=== PATIENT | male | born 2000 | race Caucasian/White ===

== ENCOUNTER 2018-01-17 12:59 | Emergency (ER) | payer OTHER ==
[~2018-01-17] VITALS: Ht 182.9 cm; Wt 74.8 kg
[2018-01-17 14:29] LABS: ABSOLUTE BASOPHIL COUNT 0.1 /CUMM (0.0-0.2); ABSOLUTE EOSINOPHIL COUNT 0.4 /CUMM (0.0-0.7); ABSOLUTE GRANULOCYTE CT 6.7 /CUMM (1.4-6.5); ABSOLUTE LYMPH COUNT 3.3 /CUMM (1.2-3.4); ABSOLUTE MONOCYTE COUNT 1.1 /CUMM (0.10-0.60); BASOPHIL % 0.5 % (0.0-2.0); EOSINOPHIL % 3.2 % (0-5); GRANULOCYTE % 58.2 % (42.2-75.2); MEAN CORPUSCULAR HGB 31.4 PG (27.0-31.0); MEAN CORPUSCULAR HGB CONC 33.7 G/DL (33.0-37.0); MEAN CORPUSCULAR VOLUME 93.1 FL (80.0-94.0); MEAN PLATELET VOLUME 9.1 FL (7.4-10.4); PLATELET COUNT 184 /CUMM (130-400); RBC DISTRIBUTION WIDTH 13.4 % (11.5-14.5); RED BLOOD CELL CT 4.84 /CUMM (4.70-6.10); WHITE BLOOD CELL COUNT 11.5 /CUMM (4.8-10.8)
--- NOTE | 2018-01-17 14:35 | ED PSYCHIATRIC COMPLAINT ---
History of Present Illness General Chief Complaint: ETOH/Drug Related Complaint Stated Complaint: CLEARANCE FOR HIGHWATCH Source: patient Exam Limitations: no limitations Vital Signs & Intake/Output Vital Signs & Intake/Output Vital Signs Date Time Temp Pulse Resp B/P B/P Pulse O2 O2 Flow FiO2 Mean Ox Delivery Rate 01/17 1533 52 18 126/81 100 Room Air 01/17 1358 Room Air 01/17 1327 18.0 75 20 123/77 99 Room Air Allergies Uncoded Allergies: UNKNOWN MEDICATION ALLERGY (Intermediate, UNKNOWN 01/17/18) Reconcile Medications No Known Home Medications Triage Note: SENT BY SYSTRAN FOR CLEARANCE. DRINKS DAILY AND TAKES XANAX OCCASSIONALLY". LAST DRINK 01/16. REPORTS HE HAS BEEN DRINKING HEAVILY X 7 MONTHS. Triage Nurses Notes Reviewed? yes Onset: Gradual Duration: constant Timing: recent history Severity: moderate Severity Numbers: 5 HPI: Patient is a 17-year-old male who presents emergency room in which she was requested by [facility] for medical clearance for admission for alcohol dependency, patient states that he's been drinking alcohol on a regular basis for 8 months however does take unprescribed benzodiazepines, last drink was yesterday patient states he takes benzodiazepines 3 times a week 1-2 tablets. Patient denies any illness denies any suicidal or homicidal ideation denies any alcohol withdrawal seizures or delirium tremens history Patient does present with parents (Marco Antonio Cm) Past History Travel History Traveled to [place] past 21 day No Medical History Any Pertinent Medical History? none Neurological: NONE EENT: NONE Cardiovascular: NONE Respiratory: NONE Gastrointestinal: NONE Hepatic: NONE Renal: NONE Musculoskeletal: NONE Psychiatric: NONE Endocrine: NONE Surgical History Surgical History: non-contributory Psychosocial History What is your primary language Nigerian Tobacco Use: Current Daily Use Daily Tobacco Use Amount/Type: Smokeless tobacco daily ETOH Use: heavy use Family History Hx Contributory? No (Marco Antonio Cm) Review of Systems Review of Systems Constitutional: Reports: no symptoms. EENTM: Reports: no symptoms. Respiratory: Reports: no symptoms. Cardiovascular: Reports: no symptoms. GI: Reports: no symptoms. Genitourinary: Reports: no symptoms. Musculoskeletal: Reports: no symptoms. Skin: Reports: no symptoms. Neurological/Psychological: Reports: no symptoms. Hematologic/Endocrine: Reports: no symptoms. Immunologic/Allergic: Reports: no symptoms. All Other Systems: Reviewed and Negative (Marco Antonio Cm) Physical Exam Physical Exam General Appearance: no apparent distress, alert Head: atraumatic Eyes: Bilateral: normal appearance. Ears, Nose, Throat: hearing grossly normal Neck: normal inspection Respiratory: chest non-tender, no respiratory distress Cardiovascular: regular rate/rhythm Gastrointestinal: normal bowel sounds, non-tender Extremities: normal range of motion Neurological/Psychiatric: awake, calm Appearance/Memory/Insight: appropriate appearance, appropriate insight, denies illness Behavoir/Eye Contact/Speech: cooperative, normal speech, good eye contact Thoughts/Hallucinations: normal thought pattern, no apparent hallucination Skin: intact, normal color SAD PERSONS Done? patient not suicidal (Marco Antonio Cm) Progress Differential Diagnosis: drug intoxication, drug overdose, drug withdrawal, electrolyte abnormality, encephalitis, hypoglycemia, hypothyroidism, IC hem/mass /tumor, meningitis Plan of Care: Orders Procedure Date/time Status Regular Diet 01/17 D Active CIWA 01/17 1436 Active LIPASE 01/17 1349 Complete ETHANOL 01/17 1349 Complete COMPREHENSIVE METABOLIC PANEL 01/17 1349 Complete CBC WITHOUT DIFFERENTIAL 01/17 1349 Complete URINE DRUG SCREEN FOR ER ONLY 01/17 1336 Complete Laboratory Tests 01/17/18 1335: Methadone Screen Cancelled, Barbiturate Screen Cancelled, Ur Phencyclidine Scrn Cancelled, Amphetamines Screen Cancelled, U Benzodiazepines Scrn Cancelled, Urine Cocaine Screen Cancelled, Urine Cannabis Screen Cancelled 01/17/18 1306: Urine Opiates Screen < 100, Methadone Screen < 40, Barbiturate Screen < 60, Ur Phencyclidine Scrn < 6.00, Amphetamines Screen < 100, U Benzodiazepines Scrn > 800 H, Urine Cocaine Screen < 50, Urine Cannabis Screen > 80.00 H 01/17/18 1200: Anion Gap 13, Estimated GFR > 60, BUN/Creatinine Ratio 22.9, Glucose 102 H, Calcium 9.6, Total Bilirubin 0.6, AST 30, ALT 29, Alkaline Phosphatase 72, Total Protein 7.8, Albumin 4.6, Globulin 3.2, Albumin/Globulin Ratio 1.4, Lipase 76, CBC w Diff NO MAN DIFF REQ, RBC 4.84, MCV 93.1, MCH 31.4 H, MCHC 33.7, RDW 13.4 , MPV 9.1, Gran % 58.2, Lymphocytes % 28.6, Monocytes % 9.5 H, Eosinophils % 3.2, Basophils % 0.5, Absolute Granulocytes 6.7 H, Absolute Lymphocytes 3.3, Absolute Monocytes 1.1 H, Absolute Eosinophils 0.4, Absolute Basophils 0.1, Serum Alcohol < 10.0 Patient shows no signs of intoxication patient's alcohol level is 0 does not fulfill hospital policy for admission for alcohol withdrawal, patient does not take and denies pains every day discussed patient with Dr. Daniels who advised patient to be transferred by parents to [facility] for admission Upon discharge patient looks well no apparent distress and will comply with discharge instructions and had no questions Patient had no signs and symptoms of illness denies any suicide or homicidal ideation (Marco Antonio Cm) Departure Departure Disposition: HOME OR SELF CARE Condition: Stable Clinical Impression Primary Impression: Alcohol dependence Referrals: Unknown (PCP/Family) Additional Instructions: As discussed if symptoms worsen or if you develop a new concerning symptom return to emergency room, once you are discharged from the emergency room please present to [facility] facility for admission Departure Forms: Customer Survey General Discharge Information Prescriptions: Current Visit Scripts No Known Home Medications (Marco Antonio Cm) PA/[employer] Co-Sign Statement Statement: ED Attending supervision documentation- [] I saw and evaluated the patient. I have also reviewed all the pertinent lab results and diagnostic results. I agree with the findings and the plan of care as documented in the PA's/SILVERWARE [employer]ER's documentation. [x] I have reviewed the ED Record and agree with the PA's/SILVERWARE [employer]ER's documentation. [] Additions or exceptions (if any) to the PAs/SILVERWARE AS[employer]BLER's note and plan are summarized below: [] (Vinayak Saldivar DO)
== END 2018-01-17 15:34 ==
LOC: ERH 12:59
PROVIDERS: Emergency Medicine
DX: F10.20 Alcohol dependence, uncomplicated (principal); F13.10 Sedative, hypnotic or anxiolytic abuse, uncomplicated
CPT/HCPCS: 80307; G0480